=== PATIENT | female | born 2000 | race Caucasian/White ===

== ENCOUNTER 2023-09-11 15:09 | Emergency (ER) | payer OTHER, SELFPAY ==
[2023-09-11 15:17] VITALS: BP 130/62; PULSE 82; RESP 16; TEMP 37; O2SAT 98; BMI 37.5
--- NOTE | 2023-09-11 15:39 | DI.US.S_ITS ---
PROCEDURE: US PELVIC COMPLETE INDICATIONS: LEFT LOWER QUADRANT ABDOMEN PAIN TECHNIQUE: Real-time scanning was performed of the pelvic organs, with image documentation. Additional endovaginal scanning was necessary due to incomplete visualization of the adnexal and endometrial structures by transabdominal scanning. COMPARISON: None. FINDINGS: Uterus: Uterus is retroverted and normal in size at 6.9 x 2.6 x 4.1 cm. The myometrium is homogeneous. The endometrium measures 5.0 mm combined thickness. There is mildly complex fluid in the endocervix. Mildly increased vascularity in the fundal endometrium. Ovaries: The right ovary measures 2.2 x 1.1 x 2.7 cm, with a calculated ovarian volume of 3.3 cc. The left ovary measures 2.7 x 1.5 x 1.6 cm, with a calculated ovarian volume of 3.3 cc. The ovaries have a normal sonographic appearance. Less than 12 follicles can be seen in each ovary. No adnexal masses are seen. Other: No pathologic free abdominal or pelvic fluid. IMPRESSION: 1. Increased endometrial vascularity may indicate a small endometrial polyp present. 2. Endocervical fluid is nonspecific. Saline sonohysterogram versus MRI may be helpful. 3. Normal ovaries and adnexa to the extent thickened be seen. We strive to produce accurate, complete, and clear reports of imaging services. To assist us in improving patient care, this report was composed using standard report templates and voice recognition software. Therefore, it may contain abnormal punctuation, insertions and/or omissions. Occasional wrong-word or sound-alike substitutions may occur. Though we review the report and make efforts to correct it, we do recommend that the report be read carefully in proper context to recognize any text inaccuracies. Dictated by: Isabelle Anaya M.D. on 09/11/2023 at 17:06 Approved by: Isabelle Anaya M.D. on 09/11/2023 at 17:10
[2023-09-11 16:09] LABS: Add Manual Diff / Slide Review NO; Basophils Absolute Auto 100 /uL (0-100); Basophils Percent Auto 0.5 % (0-2); Eosinophils Absolute Auto 100 /uL (0-450); Eosinophils Percent Auto 0.6 % (2-4); Hematocrit 37.4 % (36-46); Hemoglobin 12.5 g/dL (12.0-16.0); Lymphocytes Absolute Auto 2600 /uL (1100-4500); Lymphocytes Percent Auto 23.6 % (25-40); Mean Corpuscular HGB Conc 33.5 % (30-36); Mean Corpuscular Hemoglobin 29.4 PG (26-34); Mean Corpuscular Volume 87.8 fL (80-100); Monocytes Absolute Auto 800 /uL (0-900); Monocytes Percent Auto 6.9 % (3-14); Neutrophils Absolute Auto 7500 /uL (1500-7000); Neutrophils Percent Auto 68.4 % (50-75); Platelet Count 302 X10^3/uL (150-400); Red Blood Cell Count 4.26 X10^6/uL (4.0-5.2); Red Cell Distribution Width 12.7 % (11.6-14.8)
[2023-09-11 16:23] LABS: Alanine Aminotransferase 20 IU/L (<35); Albumin 4.1 g/dL (3.5-5.0); Albumin Globulin Ratio 1.2 (1.0-2.8); Alkaline Phosphatase 62 U/L (38-126); Aspartate Aminotransferase 28 IU/L (14-36); BUN Creatinine Ratio 19.5 (6-22); Bilirubin Total 0.4 mg/dL (0.2-1.3); Blood Urea Nitrogen 15 mg/dL (7-17); Calcium 9.4 mg/dL (8.4-10.2); Carbon Dioxide 24 mmol/L (22-32); Chloride 107 mmol/L (98-107); Estimated Glomerular Filt Rate > 60 mL/min (>60); Globulin 3.3 g/dL (1.7-4.1); Glucose 81 mg/dL (70-100); HEMOLYSIS < 15 (0-50); Potassium 4.2 mmol/L (3.4-5.1); Sodium 137 mmol/L (137-145); Total Protein 7.4 g/dL (6.3-8.2)
[2023-09-11 16:38] LABS: HCG Quantitative /Beta subunit < 2.4 mIU/mL
[2023-09-11 16:57] LABS: Appearance Urine UA CLEAR; Bilirubin Urine UA NEGATIVE (NEGATIVE); Color Urine UA YELLOW; Glucose Urine UA NEGATIVE (Negative); Ketones Urine UA NEGATIVE (NEGATIVE); Leukocyte Esterase Urine UA NEGATIVE (NEGATIVE); Nitrite Urine UA NEGATIVE (Negative); Occult Blood Urine UA 3+ (Negative); Protein Urine UA NEGATIVE (Negative); Urobilinogen Urine UA 0.2 E.U./dL (0.2)
[2023-09-11 16:59] LABS: pH Urine UA 5.5 (4.5-8.0)
[2023-09-11 17:06] LABS: Bacteria Urine Few (2-10); Culture Indicated Urine Cult Not Indicated; RBC Urine 5-10/HPF (0-5/HPF); Squamous Epithelial Cell Urine 1-5 /HPF (0-5/HPF); WBC Urine 1-5/HPF (0-5/HPF)
--- NOTE | 2023-09-11 17:14 | ED_ITS ---
HPI - Female Genitourinary <Nat Poole PA-C - Last Filed: 09/11/23 17:41> General Chief complaint: OB/Uterine Contractions Stated complaint: Symptoms of miscarriage Time Seen by Provider: 09/11/23 16:53 Mode of arrival: Family Vehicle History of Present Illness HPI Narrative: 23-year-old female with past medical history anxiety, depression, CRPS presents to the ED for a missed period and vaginal bleeding. Patient states that her last menstrual period was in mid June, following which she started experiencing some vaginal bleeding with clots over the last 2 days. Patient presents to the ED since she was concerned about a potential and miscarriage. Patient states that she took a test this morning at home which was negative. Patient is on an oral contraceptive pill. Patient states that her bleeding is light. Patient endorses some associated pelvic cramping. Patient denies fever, chills, nausea, vomiting, lightheadedness, dizziness, syncope. Patient notes that she has seen some floaters in her urine including some small specks of blood. Denies dysuria, frequency, urgency. Related Data Previous Rx's Medication Instructions Recorded levonorgestrel-ethinyl estradiol 1 tab PO DAILY #84 tabs 12/22/22 0.1 mg-20 mcg tablet (Lessina) nortriptyline 10 mg capsule 10 mg PO DAILY #30 caps 08/21/23 Allergies Allergy/AdvReac Type Severity Reaction Status Date / Time No Known Drug Allergies Allergy Unverified 09/11/23 15:22 Review of Systems <Nat Poole PA-C - Last Filed: 09/11/23 17:41> Constitutional Constitutional: Denies chills, Denies fatigue, Denies fever(s), Denies frequent falls, Denies lethargy and Denies weakness Eyes Eyes: Denies change in vision, Denies eye discharge, Denies irritation and Denies loss of vision ENT Ears, Nose, Mouth, and Throat: Denies change in voice, Denies dizziness, Denies neck pain, Denies sore throat and Denies throat swelling Cardiovascular Cardiovascular: Denies chest pain, Denies irregular heart rhythm, Denies lightheadedness, Denies palpitations, Denies dyspnea, Denies dyspnea on exertion and Denies orthopnea Respiratory Respiratory: Denies cough, Denies dyspnea, Denies dyspnea on exertion and Denies wheezing Gastrointestinal Gastrointestinal: Denies abdominal pain, Denies change in bowel habits, Denies diarrhea, Denies nausea and Denies vomiting Genitourinary Genitourinary: Reports abnormal menses, Reports abnormal vaginal bleeding and Reports pelvic pain Musculoskeletal Musculoskeletal: Denies neck pain and Denies numbness Integumentary/Breasts Skin/Breast: Denies pruritus, Denies erythema, Denies rash and Denies wounds Neurologic Neurologic: Denies behavioral changes, Denies confusion, Denies dizziness, Denies frequent falls, Denies loss of vision, Denies numbness and Denies weakness Psychiatric Psychiatric: Denies anxiety, Denies behavioral changes, Denies confusion, Denies depression, Denies homicidal ideation and Denies suicidal ideation Endocrine Endocrine: Denies fatigue, Denies flushing and Denies palpitations Hematologic/Lymphatic Hematologic/Lymphatic: Denies easy bruising Allergic/Immunologic Allergic/Immunologic: Denies urticaria, Denies throat swelling and Denies wheezing Patient History <Nat Poole PA-C - Last Filed: 09/11/23 17:41> alcohol intake frequency: a few times a month Substance Use Type: marijuana Exam <Nat Poole PA-C - Last Filed: 09/11/23 17:41> Narrative Exam Narrative: Const General:?cooperative, healthy appearing and comfortable [facility] Head:?normal to inspection Ears:?hearing grossly normal bilaterally Nose:?external nose normal Face and sinus:?normal facial exam and sinuses nontender Mouth:?oral mucosae normal Throat:?posterior oropharynx normal Eyes General:?appearance normal, both eyes and all related structures Neck Neck:?normal visual inspection and no lymphadenopathy noted Resp Effort & Inspection:?normal respiratory effort Auscultation:?clear to auscultation bilaterally Cardio Rate:?regular rate Rhythm:?regular rhythm GI Abdomen is soft, nondistended, nontender to palpation. Neuro General:?patient alert, patient awake and patient oriented x3 Initial Vital Signs Initial Vital Signs: Vital Signs Temperature 98.6 F 09/11/23 15:17 Pulse Rate 82 09/11/23 15:17 Respiratory Rate 16 09/11/23 15:17 Blood Pressure 130/62 09/11/23 15:17 Pulse Oximetry 98 09/11/23 15:17 Oxygen Delivery Method Room Air 09/11/23 15:17 <Jenny Bernal DO - Last Filed: 09/11/23 18:58> Initial Vital Signs Initial Vital Signs: Vital Signs Temperature 98.6 F 09/11/23 15:17 Pulse Rate 82 09/11/23 15:17 Respiratory Rate 16 09/11/23 15:17 Blood Pressure 130/62 09/11/23 15:17 Pulse Oximetry 98 09/11/23 15:17 Oxygen Delivery Method Room Air 09/11/23 15:17 Course <Nat Poole PA-C - Last Filed: 09/11/23 17:41> Orders Ordered: ED Orders 09/11/23 15:39 US pelvic complete Stat Beta HCG, Quant [HCG Quantitative /Beta subunit] Stat Complete Blood Count AUTO DIFF Stat Comprehensive Metabolic Panel Stat 09/11/23 16:47 Urinalysis and Microscopic Stat Vital Signs Vital signs: Vital Signs - 8 hr 09/11/23 15:17 09/11/23 17:32 Temperature 98.6 F Pulse Rate 82 72 Respiratory Rate 16 Blood Pressure 130/62 113/55 L Pulse Oximetry 98 100 Oxygen Delivery Method Room Air Room Air <Jenny Bernal DO - Last Filed: 09/11/23 18:58> Orders Ordered: ED Orders 09/11/23 15:39 US pelvic complete Stat Beta HCG, Quant [HCG Quantitative /Beta subunit] Stat Complete Blood Count AUTO DIFF Stat Comprehensive Metabolic Panel Stat 09/11/23 16:47 Urinalysis and Microscopic Stat Vital Signs Vital signs: Vital Signs - 8 hr 09/11/23 15:17 09/11/23 17:32 Temperature 98.6 F Pulse Rate 82 72 Respiratory Rate 16 Blood Pressure 130/62 113/55 L Pulse Oximetry 98 100 Oxygen Delivery Method Room Air Room Air MDM - Female Genitourinary <Nat Poole PA-C - Last Filed: 09/11/23 17:41> Lab Data 09/11/23 15:39 09/11/23 15:39 Labs: Lab Results 09/11/23 09/11/23 Range/Units 15:39 16:47 WBC 11.0 (4.5-11.0) X10^3/uL RBC 4.26 (4.0-5.2) X10^6/uL Hgb 12.5 (12.0-16.0) g/dL Hct 37.4 (36-46) % MCV 87.8 (80-100) fL MCH 29.4 (26-34) PG MCHC 33.5 (30-36) % RDW 12.7 (11.6-14.8) % Plt Count 302 (150-400) X10^3/uL Neut % (Auto) 68.4 (50-75) % Lymph % (Auto) 23.6 L (25-40) % Branch % (Auto) 6.9 (3-14) % Eos % (Auto) 0.6 L (2-4) % Baso % (Auto) 0.5 (0-2) % Neut # (Auto) 7500 H (8305-3042) /uL Lymph # (Auto) 2600 (0992-8575) /uL Branch # (Auto) 800 (0-900) /uL Eos # (Auto) 100 (0-450) /uL Baso # (Auto) 100 (0-100) /uL Sodium 137 (137-145) mmol/L Potassium 4.2 (3.4-5.1) mmol/L Chloride 107 (98-107) mmol/L Carbon Dioxide 24 (22-32) mmol/L BUN 15 (7-17) mg/dL Creatinine 0.77 (0.52-1.04) mg/dL Estimated GFR > 60 (>60) mL/min BUN/Creatinine Ratio 19.5 (6-22) Glucose 81 (70-100) mg/dL Calcium 9.4 (8.4-10.2) mg/dL Total Bilirubin 0.4 (0.2-1.3) mg/dL AST 28 (14-36) IU/L ALT 20 (<35) IU/L Alkaline Phosphatase 62 (38-126) U/L Total Protein 7.4 (6.3-8.2) g/dL Albumin 4.1 (3.5-5.0) g/dL Globulin 3.3 (1.7-4.1) g/dL Albumin/Globulin Ratio 1.2 (1.0-2.8) HCG, Quant < 2.4 mIU/mL Urine Color Yellow Urine Appearance Clear Urine pH 5.5 (4.5-8.0) Ur Specific [place] 1.020 (1.000-1.035) Urine Protein Negative (Negative) Urine Glucose (UA) Negative (Negative) g/dL Urine Ketones Negative (NEGATIVE) Urine Occult Blood 3+ H (Negative) Urine Nitrate Negative (Negative) Urine Bilirubin Negative (NEGATIVE) Urine Urobilinogen 0.2 (0.2) E.U./dL Ur Leukocyte Esterase Negative (NEGATIVE) Urine RBC 5-10/hpf H (0-5/HPF) Urine WBC 1-5/hpf (0-5/HPF) Ur Squamous Epith Cells 1-5 /hpf (0-5/HPF) Urine Bacteria Few (2-10) H (None) Ur Culture Indicated? Cult not indicated Point of Care Testing Test Results Negative Urine Dip Bedside Urine Glucose Negative Bedside Urine Bilirubin - Negative Bedside Urine Ketone - Negative Urine Specific [place] 1.025 Bedside Urine Occult Blood +++ Bedside Urine pH 6.0 Bedside Urine Protein - Negative Bedside Urine Urobilinogen - Negative Bedside Urine Nitrite - Negative Bedside Urine Leukocytes - Negative Esterase MDM Narrative Medical decision making narrative: 23-year-old female with past medical history anxiety, depression, CRPS presents to the ED for a missed period and vaginal bleeding. Concern for irregular periods versus versus threatened miscarriage versus other. Obtained labs, UA, hCG quant, ultrasound. Labs within normal limits. UA shows hematuria, no signs of infection. HCG quant is negative. Ultrasound shows increased for endometrial vascularity, may indicate a small endometrial polyp. There is some endocervical fluid that is nonspecific. Normal ovaries, no pathologic free abdominal or pelvic fluid. Discussed findings with patient. Patient could simply be experiencing an irregular menstrual cycle, also needs further workup for the polyp. It also appears that patient has skipped some of her placebo pills in May, which might have thrown her cycles of somewhat. Recommend follow-up with medical insurance claims processor as soon as possible. ED return precautions discussed with patient. Patient verbalized understanding. Medical records reviewed: Yes <Jenny Bernal, DO - Last Filed: 09/11/23 18:58> Lab Data Labs: Lab Results 09/11/23 09/11/23 Range/Units 15:39 16:47 WBC 11.0 (4.5-11.0) X10^3/uL RBC 4.26 (4.0-5.2) X10^6/uL Hgb 12.5 (12.0-16.0) g/dL Hct 37.4 (36-46) % MCV 87.8 (80-100) fL MCH 29.4 (26-34) PG MCHC 33.5 (30-36) % RDW 12.7 (11.6-14.8) % Plt Count 302 (150-400) X10^3/uL Neut % (Auto) 68.4 (50-75) % Lymph % (Auto) 23.6 L (25-40) % Branch % (Auto) 6.9 (3-14) % Eos % (Auto) 0.6 L (2-4) % Baso % (Auto) 0.5 (0-2) % Neut # (Auto) 7500 H (7389-9839) /uL Lymph # (Auto) 2600 (2132-0993) /uL Branch # (Auto) 800 (0-900) /uL Eos # (Auto) 100 (0-450) /uL Baso # (Auto) 100 (0-100) /uL Sodium 137 (137-145) mmol/L Potassium 4.2 (3.4-5.1) mmol/L Chloride 107 (98-107) mmol/L Carbon Dioxide 24 (22-32) mmol/L BUN 15 (7-17) mg/dL Creatinine 0.77 (0.52-1.04) mg/dL Estimated GFR > 60 (>60) mL/min BUN/Creatinine Ratio 19.5 (6-22) Glucose 81 (70-100) mg/dL Calcium 9.4 (8.4-10.2) mg/dL Total Bilirubin 0.4 (0.2-1.3) mg/dL AST 28 (14-36) IU/L ALT 20 (<35) IU/L Alkaline Phosphatase 62 (38-126) U/L Total Protein 7.4 (6.3-8.2) g/dL Albumin 4.1 (3.5-5.0) g/dL Globulin 3.3 (1.7-4.1) g/dL Albumin/Globulin Ratio 1.2 (1.0-2.8) HCG, Quant < 2.4 mIU/mL Urine Color Yellow Urine Appearance Clear Urine pH 5.5 (4.5-8.0) Ur Specific [place] 1.020 (1.000-1.035) Urine Protein Negative (Negative) Urine Glucose (UA) Negative (Negative) g/dL Urine Ketones Negative (NEGATIVE) Urine Occult Blood 3+ H (Negative) Urine Nitrate Negative (Negative) Urine Bilirubin Negative (NEGATIVE) Urine Urobilinogen 0.2 (0.2) E.U./dL Ur Leukocyte Esterase Negative (NEGATIVE) Urine RBC 5-10/hpf H (0-5/HPF) Urine WBC 1-5/hpf (0-5/HPF) Ur Squamous Epith Cells 1-5 /hpf (0-5/HPF) Urine Bacteria Few (2-10) H (None) Ur Culture Indicated? Cult not indicated Point of Care Testing Test Results Negative Urine Dip Bedside Urine Glucose Negative Bedside Urine Bilirubin - Negative Bedside Urine Ketone - Negative Urine Specific [place] 1.025 Bedside Urine Occult Blood +++ Bedside Urine pH 6.0 Bedside Urine Protein - Negative Bedside Urine Urobilinogen - Negative Bedside Urine Nitrite - Negative Bedside Urine Leukocytes - Negative Esterase Discharge Plan Departure Patient Disposition: Home Clinical Impression: Irregular periods Instructions: Myths and Truths About the Menstrual Cycle Activity Restrictions/Additional Instructions: You were evaluated in the ED today for a missed period. Your labs were normal. Your test was negative. Your ultrasound shows possible polyp in the uterus, but otherwise normal. Please follow-up with a medical insurance claims processor for further evaluation of the missed period and the polyp. You may make an appointment with OBGYN Dr. Tanya Del Cid by calling [phone]. Return to the ED if you have worsening symptoms, heavy bleeding where you are soaking more than 1 pad an hour, shortness of breath, lightheadedness, worsening abdominal pain. Prescriptions: No Action levonorgestrel-ethinyl estrad [Lessina] 0.1-20 mg-mcg tablet 1 tab PO DAILY Qty: 84 3RF nortriptyline 10 mg capsule 10 mg PO DAILY Qty: 30 1RF Referrals: Darrick Smalls MD [Primary Care Provider] - Stand Alone Forms: Patient Portal/API ED Sign-out <Jenny Bernal DO - Last Filed: 09/11/23 18:58> Cosign ED Attending Cosignature Attestation: I was available for consultation.
[2023-09-11 17:32] VITALS: BP 113/55; PULSE 72; O2SAT 100
== END 2023-09-11 17:34 | disposition home or self-care (01) ==
PROVIDERS: Emergency Medicine; Emergency Provider Student in an Organized Health Care Education/Training Program; PCP Family Medicine
DX: N92.6 Irregular menstruation, unspecified (principal)
CPT/HCPCS: 36415; 76830; 76856; 80053; 81001; 81003; 81025; 84702; 85025; 93975; 99283; 99284

== ENCOUNTER 2024-05-06 00:19 | Emergency (ER) | payer OTHER, MEDICAID, SELFPAY ==
[2024-05-06 00:22] VITALS: BP 119/62; PULSE 89; RESP 18; TEMP 36.8; O2SAT 96; BMI 37.5
[2024-05-06 00:48] LABS: Bacteria Urine Moderate (10-30); RBC Urine 1-5/HPF (0-5/HPF); Squamous Epithelial Cell Urine 1-5 /HPF (0-5/HPF); Urine Volume 10mL (spun); WBC Urine 30-100/HPF (0-5/HPF)
[2024-05-06 00:49] LABS: Culture Indicated Urine Specimen Cultured
--- NOTE | 2024-05-06 01:55 | ED_ITS ---
HPI - Female Genitourinary General Chief complaint: Urogenital-Female Stated complaint: pelvis area hurts possible UTI Time Seen by Provider: 05/06/24 00:44 Source: patient Mode of arrival: Ambulatory History of Present Illness HPI Narrative: 23-year-old female with suprapubic discomfort, burning with urination, frequency of urination, some right back pain. No fevers or chills. No nausea or vomiting. No injury or trauma new activities. Denies history of pelvic inflammatory disease. History of prior urinary tract infection, last infection about 2 years ago treated with antibiotics. No known drug allergies. Related Data Previous Rx's Medication Instructions Recorded levonorgestrel-ethinyl estradiol 1 tab PO DAILY #84 tabs 12/22/22 0.1 mg-20 mcg tablet (Lessina) fluoxetine 20 mg capsule 20 mg PO BID #60 caps 12/12/23 nortriptyline 10 mg capsule 10 mg PO BID #60 caps 03/06/24 cefdinir 300 mg capsule 300 mg PO BID 10 days #20 caps 05/06/24 phenazopyridine 200 mg tablet 200 mg PO TID PRN pain #10 tabs 05/06/24 (Pyridium) Allergies Allergy/AdvReac Type Severity Reaction Status Date / Time No Known Drug Allergies Allergy Unverified 09/11/23 15:22 Review of Systems Review of Systems Narrative: per HPI Patient History alcohol intake frequency: a few times a month Substance Use Type: marijuana Exam Narrative Exam Narrative: GENERAL: Well-developed patient, in mild distress. HEAD: Atraumatic. Normocephalic. EYES: Pupils equal round and reactive. Extraocular motions intact. No scleral icterus. No injection or drainage. ENT: Nose without bleeding, purulent drainage. Throat without erythema, tonsillar hypertrophy or exudate. Airway patent. NECK: Trachea midline. Non tender CARDIOVASCULAR: Regular rate and rhythm without murmurs, gallops, or rubs. RESPIRATORY: Clear to auscultation. Breath sounds equal bilaterally. No wheezes, rales, or rhonchi. GASTROINTESTINAL: Abdomen soft, non-tender, nondistended. EXTREMITIES: No edema or joint tenderness. BACK: Nontender without deformity or crepitance. No flank tenderness. NEURO: AOx3. SKIN: No rash or erythema of visible areas Initial Vital Signs Initial Vital Signs: Vital Signs Temperature 98.2 F 05/06/24 00:22 Pulse Rate 89 05/06/24 00:22 Respiratory Rate 18 05/06/24 00:22 Blood Pressure 119/62 05/06/24 00:22 Pulse Oximetry 96 05/06/24 00:22 Oxygen Delivery Method Room Air 05/06/24 00:22 Course Orders Ordered: ED Orders 05/06/24 00:30 Urine Culture Stat Urine Microscopic Stat Discontinued Medications Cefdinir (Cefdinir 300 Mg Capsule) 300 mg PO NOW ONE Stop: 05/06/24 02:03 Last Admin: 05/06/24 02:13 Dose: 300 mg Documented By: KAYLAN Phenazopyridine HCl (Phenazopyridine 100 Mg Tablet) 200 mg PO NOW ONE Stop: 05/06/24 02:03 Last Admin: 05/06/24 02:13 Dose: 200 mg Documented By: KAYLAN Vital Signs Vital signs: Vital Signs - 8 hr 05/06/24 00:22 Temperature 98.2 F Pulse Rate 89 Respiratory Rate 18 Blood Pressure 119/62 Pulse Oximetry 96 Oxygen Delivery Method Room Air MDM - Female Genitourinary Lab Data Attestation: I reviewed the patient's lab results. Labs: Lab Results 05/06/24 Range/Units 00:30 Urine RBC 1-5/hpf (0-5/HPF) Urine WBC 30-100/hpf H (0-5/HPF) Ur Squamous Epith Cells 1-5 /hpf (0-5/HPF) Urine Bacteria Moderate (10-30) H (None) Ur Culture Indicated? Specimen cultured Vol Urine Centrifuged 10ml (spun) Point of Care Testing Test Results Negative Urine Dip Bedside Urine Glucose Negative Bedside Urine Bilirubin - Negative Bedside Urine Ketone - Negative Urine Specific [place] 1.015 Bedside Urine Occult Blood +++ Bedside Urine pH 6.0 Bedside Urine Protein +/- 15 Bedside Urine Urobilinogen - Negative Bedside Urine Nitrite - Negative Bedside Urine Leukocytes +/- 15 Esterase MDM Narrative Medical decision making narrative: 23-year-old female with UTI symptoms, no fever, some right back pain when directly asked about it, no CVA tenderness on exam. Urine culture pending. Urine test negative. Oral dose cefdinir given in the emergency department, prescription sent to her pharmacy for 7 day course. Advised recheck symptoms with PCP 48 hours, to check urine culture results as well. Pyridium also given, prescription also sent. Encouraged to drink plenty of fluids. Return earlier if any change worsening symptoms or any concerns prior Discharge Plan Departure Patient Disposition: Home Clinical Impression: Urinary tract infection Instructions: DI for Urinary Tract Infection (UTI) Activity Restrictions/Additional Instructions: Painful urination, frequency of urination, no fever, no tenderness to the back on examination. Symptoms most consistent with cystitis bladder infection. Some right-sided back discomfort although no tenderness on exam, could consider early pyelonephritis upper tract infection. First dose antibiotic cefdinir given in the emergency department, prescription for further course of antibiotic sent to your pharmacy. Pyridium also taken to help with pain control bladder analgesic. This can strain your urine and undergarment clothing. Drink plenty of fluids. Recheck symptoms with your regular doctor in a couple of the days, at which time urine culture could also be checked for results. Return to this/nearest emergency department for any change worsening symptoms or any concerns prior Prescriptions: New cefdinir 300 mg capsule 300 mg PO BID 10 Days Qty: 20 0RF phenazopyridine [Pyridium] 200 mg tablet 200 mg PO TID PRN (Reason: pain) Qty: 10 0RF No Action levonorgestrel-ethinyl estrad [Lessina] 0.1-20 mg-mcg tablet 1 tab PO DAILY Qty: 84 3RF fluoxetine 20 mg capsule 20 mg PO BID Qty: 60 3RF Rx Instructions: administer in the morning and at noon/midday nortriptyline 10 mg capsule 10 mg PO BID Qty: 60 2RF Referrals: Darrick Smalls MD [Primary Care Provider] - Stand Alone Forms: Patient Portal/API
[2024-05-06] MEDS: PHENAZOPYRIDINE 100 MG TABLET 200 MG PO (02:13)
[2024-05-06] MEDS: CEFDINIR 300 MG CAPSULE PO (02:13)
== END 2024-05-06 02:20 | disposition home or self-care (01) ==
PROVIDERS: Emergency Provider Emergency Medicine; PCP Family Medicine
DX: N39.0 Urinary tract infection, site not specified (principal)
CPT/HCPCS: 81003; 81015; 81025; 87077; 87086; 87186; 99283